=== PATIENT | female | born 1955 | race Caucasian/White ===

== ENCOUNTER 2023-05-25 08:53 | Outpatient (AMB) | payer OTHER, SELFPAY ==
--- NOTE | 2023-05-25 09:36 | MHC.OFFWIV ---
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 Pt has c/o head cold, green/brown mucus, and bilateral ear discomfort. 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 Reporting symptoms of sinus congestion, sore throat and difficulty swallowing. Low-grade fever. No family member is sick. No recent travel. Patient reports symptoms of malaise and fatigue. [facility] Social History Patient Tobacco Use Status: Never used Tobacco Physical Exam Vital Signs: Last Vital Signs Temp 97.8 F 05/25/23 09:41 Pulse 76 05/25/23 09:41 BP 130/78 05/25/23 09:41 Pulse Ox 97 05/25/23 09:41 Oxygen Delivery Method Room Air 05/25/23 09:41 BMI result Body Mass Index 28.0 Const General: cooperative and healthy appearing Nutritional Appearance: well nourished Orientation/consciousness: patient oriented x3 Limitations: no limitations HEENT Head: Yes normal to inspection Eyes General: appearance normal, both eyes and all related structures Neck Neck: Yes normal visual inspection Chest Chest palpation & inspection: normal palpation of entire chest wall Resp Effort & Inspection: normal respiratory effort Neuro General: patient oriented x3 Assessment & Plan Assessment & Plan (1) Maxillary sinusitis: Code(s): J32.0 - Chronic maxillary sinusitis Plan: Antibiotics ordered. Increase fluid intake. Tylenol for aches and pains. If symptoms worsen, follow-up here for a recheck. Coding Level of Care Code Est Pt Level 3 (82189) Diagnoses Maxillary sinusitis J32.0
[2023-05-25 09:41] VITALS: BP 130/78; PULSE 76; TEMP 36.6; O2SAT 97; BMI 28.0
== END 2023-05-25 10:17 | disposition home or self-care (01) ==
PROVIDERS: Visit Provider Internal Medicine
DX: J32.0 Chronic maxillary sinusitis (principal)
CPT/HCPCS: 99213

== ENCOUNTER 2023-05-28 07:05 | Emergency (ER) | payer OTHER, SELFPAY ==
[2023-05-28 07:16] VITALS: BP 165/82; PULSE 90; RESP 17; TEMP 36.4; O2SAT 97; BMI 27.7
--- NOTE | 2023-05-28 07:44 | ED.EAR ---
HPI - Ear Problem General Chief complaint: Ear Problems Stated complaint: R ear leaking blood/dizziness Time Seen by Provider: 05/28/23 07:31 Source: patient Mode of arrival: ambulatory Limitations: no limitations History of Present Illness HPI Narrative: This is 67 years old female presented to the emergency department complaining of right ear pain. She visited the PCP primary care physician on Sunday she was diagnosed with sinus infection and started on azithromycin. She has been unable to tolerate the azithromycin because GI side effect. She is here today with a chief complaint of right ear pain. She states she has a bloody drainage from the right ear. MD Complaint: ear pain and ear discharge Location: right ear Severity: moderate Relieving factors: nothing Exacerbating factors: nothing Discharge from ear: yes - bloody Treatment prior to arrival: none Related Data Home Medications Medication Instructions Recorded Confirmed lisinopril 5 mg tablet 5 mg PO DAILY 05/25/23 Previous Rx's Medication Instructions Recorded azithromycin 250 mg tablet See Rx Instructions PO .COMPLEX #6 05/25/23 tabs amoxicillin 875 mg-potassium 1 tab PO BID #20 tabs 05/28/23 clavulanate 125 mg tablet ciprofloxacin 0.3 %-dexamethasone 4 drp otic (ear) right BID 7 days 05/28/23 0.1 % ear drops,suspension #7.5 mL oxycodone 5 mg tablet 5 mg PO Q6H PRN pain #15 tabs 05/28/23 Allergies Allergy/AdvReac Type Severity Reaction Status Date / Time No Known Allergies Allergy Verified 05/25/23 09:49 Review of Systems ENT: Reports system reviewed and no additional complaints, except as documented Cardiovascular: Cardiovascular: Reports no additional cardiovascular complaints and Denies dyspnea Respiratory: Respiratory: Denies cough and Denies dyspnea [facility] Past Medical History Attestation statement: The following information was validated with the patient. [facility] Narrative: Hypertension Source: unable to obtain Onset Date is defined in the Problem List Problems that require an onset date and time if occurred within 24 hrs of arrival to the ED Aortic Dissection and Rupture; Neurologic impairment; Cardiopulmonary Arrest; Endotracheal Intubation; Insertion or Replacement of Mechanical Circulatory Assist Device Social History Social History Patient Tobacco Use Status: Never used Tobacco Advance Directives: No Advance Directives Information Provided: No Physical Exam Vital Signs: Vital Signs: Last Vital Signs Temp 97.6 F 05/28/23 07:16 Pulse 90 05/28/23 07:16 Resp 17 05/28/23 07:16 BP 165/82 H 05/28/23 07:16 Pulse Ox 97 05/28/23 07:16 O2 Del Method Room Air 05/28/23 07:16 BMI result Body Mass Index 27.7 Const: General: cooperative, well developed, alert and awake Nutritional Appearance: average body habitus Orientation/consciousness: patient oriented x3 Limitations: no limitations HEENT: Head: Yes normal to inspection Ears: hearing grossly normal bilaterally and other (Right TM is red but I do not see a perforation on the drum) Face and sinus: Yes normal facial exam Throat: Yes posterior oropharynx normal Neck: Neck: Yes normal visual inspection and Yes full ROM Chest: Chest palpation & inspection: normal inspection of the chest Resp: Effort & Inspection: normal respiratory effort and able to speak in complete sentences Auscultation: clear to auscultation bilaterally Cardio: Jugular venous distension: no JVD Rate: regular rate Rhythm: regular rhythm GI: Inspection: Yes normal to inspection Palpation (GI): Soft to palpation, not firm, nontender and no guarding Auscultation: normal bowel sounds Skin: General skin exam: no rashes or lesions noted, elasticity normal and turgor normal Lesions: no lesions Rashes: no rashes Trauma: no lacerations or abrasions Neuro: General: patient oriented x3 Cranial nerves: Yes CN's II-XII intact bilaterally Medical Decision Making Medical Decision Making MDM Narrative: Patient presented with right ear pain unable to tolerate azithromycin given by the PCP, will try Augmentin, also I will give eardrops I think she has a combination of the right otitis media and external otitis Differential Diagnosis Differential Diagnoses: The differential diagnosis associated with the presentation includes Otitis media/externa otitis/perforated drum Admission/Observation Consideration of admission/observation: Escalation of care including admission/observation considered Chronic Conditions Patient?s care impacted by: Hypertension Discharge Plan Discharge Clinical Impression: Otitis externa, Otitis media Patient Disposition: Home, Self-Care Instructions: Ear Infection (ED) Additional Instructions: Follow-up with your primary care physician also we gave you the number of the green chain off bearer for follow-up, return to the emergency room if you are worse fever vomiting Prescriptions: New amoxicillin-pot clavulanate 875-125 mg tablet 1 tab PO BID Qty: 20 0RF ciprofloxacin-dexamethasone 0.3-0.1 % drops,suspension 4 drp otic (ear) right BID 7 Days Qty: 7.5 0RF oxycodone 5 mg tablet 5 mg PO Q6H PRN (Reason: pain) Qty: 15 0RF Rx Instructions: partial filing upon pt request; Partial Fill upon patient request. No Action lisinopril 5 mg tablet 5 mg PO DAILY azithromycin 250 mg tablet See Rx Instructions PO .COMPLEX Qty: 6 0RF Rx Instructions: take 500 mg today (day 1), then 250 mg for 4 days (days 2-5) PO Referrals: Stefan Whitmore [Physician] - 3 days Interventions: ED Discharge Assessment Last Done: 05/28/23 08:49 Discharge Date/Time: 05/28/23 08:50
== END 2023-05-28 08:50 | disposition home or self-care (01) ==
PROVIDERS: Emergency Provider Emergency Medicine
DX: H60.91 Unspecified otitis externa, right ear (principal); H66.91 Otitis media, unspecified, right ear
CPT/HCPCS: 99283

== ENCOUNTER 2023-06-13 08:35 | Outpatient (AMB) | payer OTHER, SELFPAY ==
--- NOTE | 2023-06-13 09:24 | AM.OFFWIN_ITS ---
Intake Vital Signs 06/13/23 09:27 Height 5 ft 10 in Weight 189 lb 8 oz BMI 27.2 BP 160/80 H Blood Pressure Location Rt brachial Position Sitting Pulse 94 Pulse Source Pulse Oximeter Temp 98.2 F Temp Source Oral Pulse Oximetry (%) 97 Oxygen Delivery Method Room Air Intake Visit Reasons: EP Cough [phone] Intake Note: Pt is here c/o cough for over one month. Pt states she had the flu last month and has now developed a worsening cough. Patient Tobacco Use Status: Never used Tobacco Allergies No Known Allergies Allergy (Verified 06/13/23 09:26) Medication List - Last Reconciled 06/13/23 by SERAFIN Walden lisinopril 5 mg PO DAILY Do you need a note to return to daycare/school/sports/work: No HPI HPI Comments History of Present Illness Details Here today w/ cough that has been present since dx of the Flu 1 month ago Has been tx w 2 AB since this time cough productive dark, worse at HS Using mucinex w/o relief PFSH Social History Patient Tobacco Use Status: Never used Tobacco Review of Systems Const All systems reviewed & are unremarkable except as noted in HPI and below Physical Exam Vital Signs: Last Vital Signs Temp 98.2 F 06/13/23 09:27 Pulse 94 06/13/23 09:27 BP 160/80 H 06/13/23 09:27 Pulse Ox 97 06/13/23 09:27 Oxygen Delivery Method Room Air 06/13/23 09:27 BMI result Body Mass Index 27.2 Const Other: ill appearing paroxysmal cough, able to speak 1-2 words at a time LS w/ coarse rhonci throughout skin PWD after updraft, cough much improved, able to speak in full sentences, LS ins/exp wheezes w/ scattered rhonci Office Procedures Nebulizer Treatment Nebulizer Treatment 13855-Xxmhqtvnv/MDI RX initial, or Nebulizer Subsequent Treatment Office Meds ipratropium 0.5 mg-albuterol 3 mg (2.5 mg base)/3 mL nebulization soln Performing Provider: SERAFIN Walden Performing Location: [facility] Administered by: SERAFIN Walden on 06/13/23 09:50 Dose Route Admin Location Dispensed Lot Number Expiration Date [employer] [facility] Security Officer 3 mL inhalation 3 mL [id number] 02/19/24 0686-5378-92 [facility] Assessment & Plan Assessment & Plan (1) Cough present for greater than 3 weeks: Code(s): R05.8 - Other specified cough Plan: . Plan CXR today, will be called if results +. if need for AB, she asks to avoid Zpak as this caused vomiting. Take steroids and inhaler as directed. if no improvement or worsening, please return Total time spent caring for the patient today was 70 minutes. This includes time spent before the visit reviewing the chart, time spent during the visit, and time spent after the visit on documentation Orders: Orders XR chest 2V Today R05.8 - Other specified cough AMB Nebulizer Treatment Today R05.8 - Other specified cough Medications: New prednisone 50 mg PO DAILY 5 days 5 tabs 0RF albuterol sulfate 90 mcg/actuation 2 puffs inhalation Q4-6H 30 days PRN 8.5 grams 0RF shortness of breath or wheezing codeine-guaifenesin 10-100 mg/5 mL 5 mL PO .QHS PRN 10 mL 0RF cough 2 days fluticasone propion-salmeterol 250-50 mcg/dose (Advair Diskus) 1 inh inhalation Q12H 30 days 60 ea 0RF Coding Level of Care Code Est Pt Level 5 (36107) Diagnoses Cough present for greater than 3 weeks R05.8 CPT Codes Nebulizer Treatment - Nebulizer Treatment, initial or subsequent: 10162- Nebulizer/MDI RX initial, or Nebulizer Subsequent Treatment ([id number])
[2023-06-13 09:27] VITALS: BP 160/80; PULSE 94; TEMP 36.8; O2SAT 97; BMI 27.2
== END 2023-06-13 10:04 | disposition home or self-care (01) ==
PROVIDERS: Visit Provider Nurse Practitioner Family
DX: R05.8 Other specified cough (principal)
CPT/HCPCS: 94640; 99215; J7620

== ENCOUNTER 2023-06-13 10:08 | Outpatient (REF) | payer OTHER, SELFPAY ==
--- NOTE | ~2023-06-13 | XR_ITS ---
EXAMINATION: XR CHEST CLINICAL INFORMATION: Other unspecified cough difficulty breathing COMPARISON: None available. TECHNIQUE: 2 views of the chest were obtained. FINDINGS: Lungs clear. No pleural effusions. Heart and pulmonary vessels normal. No congestive change. There is spondylitic change in the thoracic spine. XR/XR chest 2V IMPRESSION: No active disease.
== END 2023-06-13 10:09 | disposition home or self-care (01) ==
LOC: HO.HMGCX 10:08
PROVIDERS: Visit Provider Nurse Practitioner Family
DX: R05.8 Other specified cough (principal)
CPT/HCPCS: 71046

== ENCOUNTER 2024-10-16 08:40 | Outpatient (REF) | payer OTHER, SELFPAY | END 2024-10-16 08:41 | disposition home or self-care (01) | LOC: HO.LAB 08:40 | PROVIDERS: PCP Family Medicine | DX: N39.0 Urinary tract infection, site not specified (principal); J06.9 Acute upper respiratory infection, unspecified | CPT/HCPCS: 87086 ==

== ENCOUNTER 2024-10-16 08:40 | Outpatient (AMB) | payer OTHER, SELFPAY ==
--- OUTSIDE RECORDS SUMMARY | 2024-10-16 08:56 | XMS_ITS | Clinical Summary ---
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 Phone Unavailable Primary Care Provider Unavailabl e Social History Tobacco Use Types Packs/Day Years Used Date Smoking Tobacco: Never Assessed Comments Unknown Sex and Gender Information Value Date Recorded Sex Assigned at Female 06/28/2023 10:19 AM EST Legal Sex Female 8:49 AM EST Gender Identity Female 06/28/2023 8:55 AM EST Sexual Orientation Not on file Plan of Treatment Health Maintenance Due Date Last Done Comments CT Colonography 1954 Colonoscopy 1954 Colorectal Cancer Screening 1954 Depression Screening 1954 FIT DNA/Cologuard 1954 FIT 1954 FOBT 1954 SDOH Screening 1954 Sigmoidoscopy 1954 Alcohol/Substance Use Screening 1966 Tobacco Screening 1966 Hepatitis C Screening 1972 DTaP/Tdap/Td Vaccines (1 - Tdap) 1973 Mammogram 1994 Pneumococcal Vaccine: 50+ Ye ars (1 of 1 - PCV) 2004 Zoster Vaccines (1 of 2) 2004 COVID-19 Vaccine ( - 2023-2 5 season) 2024 Influenza Vaccine (#1) 2024 RSV Patients and Pa tients Aged 60 years or older (1 - 1-dose 75+ series) 2029 HIB Vaccines Aged Out No longer eligi ble based on patient's age to complete this topic HPV Vaccines Aged Out No longer eligi ble based on patient's age to complete this topic Hepatitis A Vaccines Aged Out No long er eligible based on patient's age to complete this topic Hepatitis B Vaccines Aged Out No long er eligible based on patient's age to complete this topic IPV Vaccines Aged Out No longer eligi ble based on patient's age to complete this topic Meningococcal B Vaccine Aged Out No l onger eligible based on patient's age to complete this topic Meningococcal Vaccine Aged Out No chely angelo eligible based on patient's age to complete this topic RSV under 20 months Aged Out No longe r eligible based on patient's age to complete this topic Rotavirus Vaccines Aged Out No longer eligible based on patient's age to complete this topic [facility]
--- NOTE | 2024-10-16 09:05 | AM.OFFWIN_ITS ---
Intake Vital Signs 10/16/24 09:09 Height 5 ft 10 in BMI Reason not done Patient refused/unable BP 140/80 H Blood Pressure Location Lt brachial Position Sitting Pulse 85 Pulse Source Pulse Oximeter Temp 97.7 F Temp Source Oral Pulse Oximetry (%) 98 Oxygen Delivery Method Room Air Intake Visit Reasons: EP-?uti Patient Tobacco Use Status: Never used Tobacco Allergies No Known Allergies Allergy (Verified 10/16/24 09:09) Do you need a note to return to daycare/school/sports/work: No HPI HPI Comments History of Present Illness Details History of Present Illness - The patient is a 68-year-old female pr esenting with increased urinary frequency and urgency. - Symptoms began two days ago, with the worst intensity reported the day before this visit. - The patient describes feelings of pres sure and frequent urges to urinate. - There is no history of urinary tract i nfections or kidney stones. - The patient denies fever, low back jeanne n, hematuria, and vulvar itching or redness. - Walking feels unusual due to the urina ry symptoms. - The patient does not have diabetes. Physical Exam General: Cooperative, healthy appearing, comfortable, no acute distress and well developed Orientation: Patient oriented x3 Limitations: No limitations Head: Normal to inspection Ears: Hearing grossly normal bilaterally Nose: Normal External nose present Face and sinus: Normal facial exam Eyes: Appearance normal, both eyes and all related structures Neck: Normal visual inspection and Yes full ROM Respiratory: Normal respiratory effort and able to speak in complete sentences. Skin: No rashes or lesions noted Neuro: Patient oriented x3 Extremities: Normal to inspection [facility] Social History Patient Tobacco Use Status: Never used Tobacco Review of Systems Const All systems reviewed & are unremarkable except as noted in HPI and below Physical Exam Vital Signs: Last Vital Signs Temp 97.7 F 10/16/24 09:09 Pulse 85 10/16/24 09:09 BP 140/80 H 10/16/24 09:09 Pulse Ox 98 10/16/24 09:09 Oxygen Delivery Method Room Air 10/16/24 09:09 Assessment & Plan Assessment & Plan (1) URI, acute: Code(s): J06.9 - Acute upper respiratory infection, unspecified Plan: UA negative for infection but + for blood. A presumptive diagnosis of urinary tract infection is made based on the patient's symptoms and urinalysis results. Empirical antibiotic treatment has been initiated, with a urine culture ordered to verify the diagnosis and antibiotic sensitivity. Adjustments to the antibiotic may be made if the culture indicates resistance. The patient is instructed to complete the antibiotic course unless otherwise notified. If the culture is negative, further evaluation will be conducted to determine other potential causes for the symptoms. The patient has been advised to report any new or worsening symptoms, and the plan has been discussed thoroughly with the patient. Patient was informed and verbally consented to the use of an ambient scribe for clinic note documentation during this visit. Orders: Orders Urine Culture Today N39.0 - Urinary tract infection, site not specified Medications: New cefuroxime axetil 500 mg PO Q12H 10 tabs 0RF Coding Level of Care Code New Pt Level 3 (46041) Diagnoses URI, acute J06.9
[2024-10-16 09:09] VITALS: BP 140/80; PULSE 85; TEMP 36.5; O2SAT 98
== END 2024-10-16 09:41 | disposition home or self-care (01) ==
PROVIDERS: PCP Family Medicine; Visit Provider Physician Assistant
DX: J06.9 Acute upper respiratory infection, unspecified (principal)

== ENCOUNTER 2024-12-15 09:10 | Outpatient (AMB) | payer OTHER, SELFPAY ==
--- OUTSIDE RECORDS SUMMARY | 2024-12-15 09:48 | XMS_ITS | Clinical Summary ---
Author Organization [employer] Address [address] [place] [address] Care Team Providers Care Case Fitter Name Role Phone Unavailable Primary Care Provider [...] 2023-2 5 season) 2024 Influenza Vaccine (#1) 2025 RSV Patients and Pa tients Aged 60 [...] patient's age to complete this topic [facility]
--- OUTSIDE RECORDS SUMMARY | 2024-12-15 09:48 | XMS_ITS | Clinical Summary ---
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 Phone No, Pcp Primary Care Provider Unavailabl e Allergies No known active allergies Active Problems Problem Noted Date Diagnosed Date Bilateral calcaneal spurs 03/17/2022 Social History Tobacco Use Types Packs/Day Years Used Date Smoking Tobacco: Never Assessed Comments Unknown Sex and Gender Information Value Date Recorded Sex Assigned at Not on file Legal Sex Female 8:20 AM [facility] Gender Identity Not on file Sexual Orientation Not on file Plan of Treatment Health Maintenance Due Date Last Done Comments CT Colonography 1954 Cologuard 1954 Colonoscopy 1954 Colorectal Cancer Screening 1954 FOBT/FIT 1954 Hepatitis C Screening 1954 Sigmoidoscopy 1954 PHQ-9 Depression Screen 1966 Annual Preventive Exam 1972 JOCELYNE-7 Anxiety Screen 1972 DTaP,Tdap,and Td Vaccines (1 - Tdap) 1973 Mammogram 1994 Pneumococcal Vaccine: 50+ Years (1 of 1 - PCV) 005 Zoster Vaccines (1 of 2) 2004 Bone Density DEXA 11/08/2019 COVID-19 Vaccine (1 - 2023-25 season) 2024 Influenza Vaccine (#1) 2025 RSV Vaccine (SCDM) (1 - 1-dose 75+ series) 2029 Insurance [employer] Care Teams Heavy Equipment Supervisor Relationship Specialty Start Date End Date No, Pcp PCP - General 03/17/22
--- OUTSIDE RECORDS SUMMARY | 2024-12-15 09:48 | XMS_ITS | Clinical Summary ---
Author Organization [facility] [address] [place] [address] Address [address] [place] [address] Phone Care Team Providers Care Manager Reliability Name Role Phone Damien Alva MD Primary Care Pr ovider Allergies Active Allergy Reactions Criticality Noted Date Comments Azithromycin 08/07/2016 GI upset Medications multivitamin (MULTIPLE VITAMINS ORAL) 1 daily Activ e cholecalciferol (VITAMIN D-3) 25 mcg (1,000 unit) capsule Take by mouth daily. Active lisinopriL (PRINIVIL,ZESTRI L) 5 mg tabletIndication s:Essential (primary) hypertension Take 1 tablet (5 mg total) by mouth 1 (one) time each day. 90 tablet 1 5 Active pravastatin (PRAVACHOL) 10 mg tablet Take 1 tablet (10 mg total) by mouth 1 (one) time each day. 90 tablet 1 5 Active ibuprofen (ADVIL,MOTRIN) 800 mg tablet TAKE 1 TABLET BY MOUTH 2 TIMES A DAY IF NEEDED FOR PAIN. 60 tablet 5 Active ibuprofen (ADVIL,MOTRIN) 800 mg tablet Take 1 tablet (800 mg total) by mouth 2 (two) times a day if needed (pain). 60 tablet 5 025 Discontinued Active Problems Problem Noted Date Diagnosed Date Essential hypertension 08/21/2019 Diverticulitis of colon without hemorrhage 01/18 Overview (05/12/2024): Incidental finding at colonoscopy 01/18/2010. Hyperlipidemia 09/10/2008 Umbilical hernia 06/07/2005 Encounters Date Type Department Care Team Description 11/11/2024 10:41 AM EDT - 11/11/2024 11:59 PM EDT Hospital Encounter XRAY - [address] [phone] Acute pain of left knee Discharge Disposition: Home or Self Care 11/11/2024 10:00 AM EDT Office Visit [facility] - [address] [phone] Mila Petit PA Annual physical exam (Primary Dx); Essential (primary) hypertension; Acute pain of left knee; Screening for osteoporosis 10/01/2024 9:48 AM EDT - 10/01/2024 11:59 PM EDT Hospital Encounter Radiology Department - [address] [phone] Encounter for screening mammogram for breast cancer Discharge Disposition: Home or Self Care from Last 3 Months Immunizations Name Administration Dates Next Due Influenza trivalent, 0.5mL, preservative free (Fluarix; FluLaval; Fluzone) ages 6mo and older (Afluria) 3 years and older 05/06/2012 Influenza trivalent, with pr eservative (Fluzone; Afluria) 6mo and older 05/19/2013 Pneumococcal conjugate 20 va lent (Prevnar 20, PCV 20) 2mo and older 08/28/2023 Td Tetanus diptheria (Tdvax) 7yo and older 02/11,01/19/1994 Tdap Tetanus diptheria acell ular pertussis (Boostrix; Adacel) 7yo and older 02/11/2019,12/24/2006,01/19/1994 Surgical History Surgery Date Site/Laterality Comments CHOLECYSTECTOMY PROCEDURE: HISTORICAL CHOLECYSTECTOMY TONSILLECTOMY PROCEDURE: HISTORICAL TONSILLECTOMY HYSTERECTOMY 09/22 PROCEDURE: HISTORICAL HYSTERECTOMY; COMMENT: ovaries left COLONOSCOPY W/ POLYPECTOMY 01/18/2010 PROCEDURE: LA COLSC FLX W/RMVL OF TUMOR POLYP LESION SNARE TQ; COMMENT: large polyp at 15 cm: pedunculated cancer arising in a polyp. COLONOSCOPY 10/13/2010 PROCEDURE: LA COLONOSCOPY FLX DX W/COLLJ SPEC WHEN PFRMD; COMMENT: no polyps COLONOSCOPY 04/03/2014 PROCEDURE: LA COLONOSCOPY FLX DX W/COLLJ SPEC WHEN PFRMD; COMMENT: no polyps Medical History Medical History Date Comments Umbilical hernia without men tion of obstruction or gangrene 06/07/2005 DX:Umbilical hernia without mention of obstruction or gangrene Hyperlipidemia 09/10/2008 DX:Hyperlipidemi a Diverticulosis of colon (wit hout mention of hemorrhage) 01/18/2010 DX:Diverticulosis of colon ( without mention of hemorrhage) Personal history of colon cancer 01/20/2010 DX:Personal history of colon cancer; COMMENT: Pedunculated adenoma with adenocarcinoma removed at colonoscopy 01/18/2010. No unfavorable prognostic factors. Clear margin by 5 mm. Neg CN 10/13/2010. Next CN indicated 2013. Personal history of malignan t neoplasm of large intestine 2012 DX:Personal history of malig nant neoplasm of large intestine Essential hypertension 08/21/2019 DX:Essent ial hypertension Essential hypertension 08/21/2019 Family History Medical History Relation Name Comments Hyperlipidemia Brother Other: unknown Father unknown cause Breast cancer Maternal Grandmother 70s COPD Mother cabg Colon cancer Neg Hx Relation Name Status Comments Brother Father unknown health Maternal Grandmother 70s Mother MIs Social History Tobacco Use Types Packs/Day Years Used Date Smoking Tobacco: Former Cigarettes Q uit: 05/21/1979 Smokeless Tobacco: Never Alcohol Use Standard Drinks/Week Comments No 0 (1 standard drink = 0.6 oz pur e alcohol) Housing Instability Answer Date Recorde d Are you worried that in the next 2 months you may not have stable housing? No 11/11/2024 Food Access & Nutrition Answer Date Rec orded Do you have access to a vari ety of food including fruits and vegetables? Yes 11/11/2024 Health Literacy Answer Date Recorded How often do you need to hav e someone help you when you read instructions, pamphlets, or other written material from your doctor or pharmacy? Never 11/11/2024 Caregiver: How often do you need to have someone help you when you read instructions, pamphlets, or other written material from your doctor or pharmacy? Not on file 11/11/2024 Financial Risk Answer Date Recorded How hard is it for you to pa y for the very basics like food, housing, medical care, and air conditioning / heating? Not very hard 11/11/2024 Transportation Answer Date Recorded Has the lack of transportati on kept you from meetings, work, or from getting things needed for daily living? No Has the lack of transportati on kept you from medical appointments or from getting medications? No 11/11/2024 Social Isolation Answer Date Recorded How often do you feel lonely or isolated from th ose around you? Never 11/11/2024 Food Risk Answer Date Recorded Within the past 12 months we worried whether our food would run out before we got money to buy more. Never true 11/11/2024 Within the past 12 months th e food we bought just didn't last and we didn't have money to get more. Never true 11/11/2024 Dependent Care Answer Date Recorded Do you need help finding or paying for care for your loved ones. For example, child welfare assistant or elderly care for an older adult? No 11/11/2024 Education Answer Date Recorded Do you think completing more education or training, like finishing a GED, going to college, or learning a trade, would be helpful for you? No 11/11/2024 Employment and Income Answer Date Recor ded During the last four weeks, have you been actively looking for work? No 11/11/2024 Living Situation Answer Date Recorded What is your living situation? 0 11/11/2024 Comments No Sex and Gender Information Value Date Recorded Sex Assigned at Not on file Legal Sex Female 6:34 PM EST Gender Identity Not on file Sexual Orientation Not on file Obstetrics History Para Term AB IAB SAB Ectopic Multiple Livin g Live Births 6 6 6 6 Date Outcome GA Total Labor Labor/2nd/3rd Weight Sex Type Anes PTL Preeti A1 A5 Name Clin Term Term Term Term Term Term Last Filed Vital Signs Vital Sign Reading Time Taken Comments Blood Pressure 133/78 11/11/2024 10:07 AM EDT Pulse 76 11/11/2024 10:07 AM EDT Temperature 36.5 C (97.7 F) 11/11/2024 10:07 AM EDT Respiratory Rate 14 11/11/2024 10:07 AM EDT Oxygen Saturation 97% 11/11/2024 10:07 AM EDT Inhaled Oxygen Concentration - - Weight 85.7 kg (189 lb) 11/11/2024 10:07 AM EDT Height 175.3 cm (5' 9 ) 11/11/2024 10:07 AM EDT Body Mass Index 27.91 11/11/2024 10:07 AM EDT Plan of Treatment Upcoming Encounters Date Type Department Care Team (Late st Contact Info) Description 05/15/2025 10:30 AM EST Office Visit Adult Medicine [address] [phone] Mila Petit PA [address] [place] [address] 11/19/2025 12:00 PM EDT Office Visit Adult [address] [phone] Damien Alva MD [address] [place], [place] [id number] Health Maintenance Due Date Last Done Comments Zoster Vaccines (1 of 2) 2004 COVID-19 Vaccine ( - season) 2024 09/30/2020, 09/02/2020 Influenza Vaccine (#1) 2025 05/19/2013, 2011 Falls Risk Assessment 11/11/2025 11/11/2024 Social Influencers of Health Screening 11/11/2025 11/11/2024 Hypertension/CHF/CAD Annual BMP Blood Test 11/12/2025 11/12/2024, 08/16/2023 Breast Cancer Screening 10/01/2026 10/02/19, 09/20/2023, 09/20/2023, Additional history exists Colorectal Cancer Screening: Colonoscopy 09/26/2028 09/27/2023 DTaP,Tdap,and Td Vaccines (6 - Td or Tdap) 02/11/2029 02/11/2019, 02/11/2019, 12/24/2006, Additional history exists RSV Immunization Adult Patients (1 - 1-dose 75+ series) 2029 Cholesterol Screening (Lipid Panel) 11/12/2029 11/12/2024, 08/16/2023 Osteoporosis Screening (Bone Density Screening) 09/07/2032 09/07/2022 Hepatitis C Screening Completed 05/20/2013 Pneumococcal Vaccine: 50+ Years Completed 08/28/2023 Depression Screening Completed 11/11/2024 HIB Vaccines Aged Out No longer eligi [...] on patient's age to complete this topic MMR Vaccines Aged Out No longer eligi ble based on patient's age to complete this topic Meningococcal ACWY Vaccine Aged Out N o longer eligible based on patient's age to complete this topic Meningococcal B Vaccine Aged Out No l onger eligible based on patient's age to complete this topic RSV Immunization Patients Under 20 months Aged Out No longer eligible based on patient's age to complete this topic Varicella Vaccines Aged Out No longer eligible based on patient's age to complete this topic Procedures Procedure Name Priority Date/Time Associated Diagnosis Comments CBC WITH AUTO DIFFERENTIAL Routine 11/12/2024 7:35 AM EDT Annual physical exam CBC AND DIFFERENTIAL Routine 11/12/2024 7:35 AM EDT Annual physical exam COMPREHENSIVE METABOLIC PANEL Routine 11/12/2024 7:35 AM EDT Annual physical exam Essential (primary) hypertension HEMOGLOBIN A1C Routine 11/12/2024 7:35 AM EDT Annual physical exam LIPID PANEL WITH REFLEX TO DIRECT LDL Routine 11/12/2024 7:35 AM EDT Annual physical exam VITAMIN D 25 HYDROXY Routine 11/12/2024 7:35 AM EDT Annual physical exam XR KNEE 4+ VIEWS LEFT Routine 11/11/2024 10:52 AM EDT Acute pain of left knee MG MAMMO DIGITAL SCREENING W KRZYSZTOF BILAT Routine 10/01/2024 9:58 AM EDT Encounter for screening mammogram for breast cancer COLONOSCOPY Routine 09/27/2023 DXA BONE DENSITY STUDY 1+ SITS AXIAL SKEL Routine 09/07/2022 10:55 AM EDT Encounter for screening for osteoporosis HEPATITIS C SCREENING Routine 05/20/2013 from Last 3 Months or Most Recently Relevant to Health Maintenance Results * (ABNORMAL) Lipid panel with reflex to direct LDL (11/12/2024 7:35 AM EDT) Cholesterol 212(H) 0 - 200 mg/dL LAB [facility] Triglycerides 135 0 - 150 mg/dL LAB CHEMISTRY METHOD 11/12/2024 11:28 AM [facility] HDL 61 >=40 mg/dL LAB CHEMISTRY METHOD 11/12/2024 11:28 AM [facility] LDL Calculated 124(H) 0 - 100 mg/dL LAB CHEMISTRY METHOD 11/12/2024 11:28 AM [facility] VLDL Cholesterol Juan 27 mg/dL LAB CHEMISTRY METHOD 11/12/2024 11:28 AM [facility] Non HDL Chol. (LDL+VLDL) 151(H) <145 mg/dL LAB CHEMISTRY METHOD 11/12/2024 11:28 AM [facility] Chol/HDL Ratio 3.5 0.0 - 4.4 LAB CHEMISTRY METHOD 11/12/2024 11:28 AM [facility] Blood Venous blood specimen / Unknown Venipuncture / Unknown 11/12/2024 7:35 AM EDT 11/12/2024 7:35 AM EDT us Mila MADRIGAL LAB BLOOD ORDERABLES Final Re sult [facility] [address] [place] [address], * CBC auto differential (11/12/2024 7:35 AM EDT) WBC 5.6 4.8 - 10.8 K/mcL LAB HEMETOLOGY METHOD 11/12/2024 10:44 AM EDT [facility] RBC 4.80 3.80 - 4.80 M/mcL LAB HEMETOLOGY METHOD 11/12/2024 10:44 AM EDT [facility] Hemoglobin 14.7 11.5 - 16.0 g/dL LAB HEMETOLOGY METHOD 11/12/2024 10:44 AM EDT [facility] Hematocrit 45.9 35.0 - 47.0 % LAB HEMETOLOGY METHOD 11/12/2024 10:44 AM EDT [facility] MCV 96.6 79.0 - 98.0 FL LAB HEMETOLOGY METHOD 11/12/2024 10:44 AM EDT [facility] MCH 30.9 27.0 - 32.0 pcg LAB HEMETOLOGY METHOD 11/12/2024 10:44 AM EDT [facility] MCHC 32.0 32.0 - 37.0 g/dL LAB HEMETOLOGY METHOD 11/12/2024 10:44 AM EDT [facility] RDW 12.8 11.0 - 15.0 % LAB HEMETOLOGY METHOD 11/12/2024 10:44 AM EDT [facility] Platelets 263 130 - 400 K/mcL LAB HEMETOLOGY METHOD 11/12/2024 10:44 AM EDT [facility] MPV 10.9 7.0 - 11.0 FL LAB HEMETOLOGY METHOD 11/12/2024 10:44 AM [facility] NRBC 0.0 <1.0 % LAB HEMETOLOGY METHOD 11/12/2024 10:44 AM [facility] NRBC Absolute 0.00 <0.10 K/mcL LAB HEMETOLOGY METHOD 11/12/2024 10:44 AM [facility] Neutrophils Relative 50.4 % LAB HEMETOLOGY METHOD 11/12/2024 10:44 AM [facility] Lymphocytes Relative 40.8 % LAB HEMETOLOGY METHOD 11/12/2024 10:44 AM [facility] Monocytes Relative 6.8 % LAB HEMETOLOGY METHOD 11/12/2024 10:44 AM [facility] Eosinophils Relative 1.1 % LAB HEMETOLOGY METHOD 11/12/2024 10:44 AM [facility] Basophils Relative 0.7 % LAB HEMETOLOGY METHOD 11/12/2024 10:44 AM [facility] Immature Granulocytes Relative 0.2 % LAB HEMETOLOGY METHOD 11/12/2024 10:44 AM [facility] Neutrophils Absolute 2.82 1.50 - 7.00 K/mcL LAB HEMETOLOGY METHOD 11/12/2024 10:44 AM [facility] Lymphocytes Absolute 2.28 1.00 - 5.00 K/mcL LAB HEMETOLOGY METHOD 11/12/2024 10:44 AM [facility] Monocytes Absolute 0.38 0.20 - 1.00 K/mcL LAB HEMETOLOGY METHOD 11/12/2024 10:44 AM [facility] Eosinophils Absolute 0.06 0.00 - 0.50 K/mcL LAB HEMETOLOGY METHOD 11/12/2024 10:44 AM [facility] Basophils Absolute 0.04 0.00 - 0.20 K/mcL LAB HEMETOLOGY METHOD 11/12/2024 10:44 AM EDT [facility] Immature Granulocytes Absolute 0.01 0.00 - 0.03 K/mcL LAB HEMETOLOGY METHOD 11/12/2024 10:44 AM EDT [facility] Blood Venous blood specimen / Unknown Venipuncture / Unknown 11/12/2024 7:35 AM EDT 11/12/2024 7:35 AM EDT Mila MADRIGAL LAB BLOOD ORDERABLES Final Re sult Performing Organization Address City/[facility]/ZIP Co de Phone Number [facility] [address] [place] [address], [place] [phone] * Vitamin D 25 hydroxy (11/12/2024 7:35 AM EDT) Vit D, 25-Hydroxy 56.8 30.0 - 80.0 ng/mL LAB CHEMISTRY METHOD 11/12/2024 12:01 PM EDT [facility] Blood Venous blood specimen / Unknown Venipuncture / Unknown 11/12/2024 7:35 AM EDT 11/12/2024 7:35 AM EDT Mila MADRIGAL LAB BLOOD ORDERABLES Final Re sult Performing Organization Address City/[facility]/ZIP Co de Phone Number [facility] [address] [place] [address], [place] [phone] * Hemoglobin A1c (11/12/2024 7:35 AM EDT) Hemoglobin A1C 5.5 <6.5 % LAB CHEMISTRY METHOD 11/12/2024 12:25 PM EDT [facility] Mean Bld Glu Estim. 111 mg/dL LAB CHEMISTRY METHOD 11/12/2024 12:25 PM EDT [facility] Blood Venous blood specimen / Unknown Venipuncture / Unknown 11/12/2024 7:35 AM EDT 11/12/2024 7:35 AM EDT us Mila MADRIGAL LAB BLOOD ORDERABLES Final Re sult [facility] [address] [place] [address], [place] [phone] * Comprehensive metabolic panel (11/12/2024 7:35 AM EDT) Sodium 140 133 - 145 mmol/L LAB CHEMISTRY METHOD 11/12/2024 11:28 AM [facility] Potassium 4.1 3.5 - 5.5 mmol/L LAB CHEMISTRY METHOD 11/12/2024 11:28 AM [facility] Chloride 106 96 - 110 mmol/L LAB CHEMISTRY METHOD 11/12/2024 11:28 AM [facility] CO2 27 21 - 32 mmol/L LAB CHEMISTRY METHOD 11/12/2024 11:28 AM [facility] Anion Gap 7 3 - 11 LAB CHEMISTRY METHOD 11/12/2024 11:28 AM [facility] Glucose 100 70 - 100 mg/dL LAB CHEMISTRY METHOD 11/12/2024 11:28 AM [facility] BUN 15 5 - 25 mg/dL LAB CHEMISTRY METHOD 11/12/2024 11:28 AM [facility] Creatinine 0.86 0.50 - 1.10 mg/dL LAB CHEMISTRY METHOD 11/12/2024 11:28 AM [facility] eGFR 73 >=60 mL/min/1. 73m2 LAB CHEMISTRY METHOD 11/12/2024 11:28 AM [facility] Comment:Calculation based on the Chronic Kidney Disease Epidemiology Collaboration (CKD-EPI) equation refit without adjustment for race. BUN/Creatinine Ratio 17.4 LAB CHEMISTRY METHOD 11/12/2024 11:28 AM [facility] Calcium 9.1 8.5 - 10.5 mg/dL LAB CHEMISTRY METHOD 11/12/[facility]24 11:[facility] AST (SGOT) 15 10 - 42 unit/L LAB CHEMISTRY METHOD 11/12/2024 11:28 AM T [facility] ALT (SGPT) 21 10 - 60 unit/L LAB CHEMISTRY METHOD 11/12/2024 11:28 AM EDT [facility] Alkaline Phosphatase 92 42 - 121 unit/L LAB CHEMISTRY METHOD 11/12/2024 11:28 AM [facility] Total Protein 6.7 6.0 - 8.0 g/dL LAB CHEMISTRY METHOD 11/12/2024 11:28 AM [facility] Albumin 3.8 3.2 - 5.0 g/dL LAB CHEMISTRY METHOD 11/12/2024 11:28 AM [facility] Total Bilirubin 0.7 0.0 - 1.4 mg/dL LAB CHEMISTRY METHOD 11/12/2024 11:28 AM T [facility] Blood Venous blood specimen / Unknown Venipuncture / Unknown 11/12/2024 7:35 AM EDT 11/12/2024 7:35 AM EDT Mila MADRIGAL LAB BLOOD ORDERABLES Final Re sult [facility] [address] [place] [address], * XR Knee 4+ Views Left (11/11/2024 10:52 AM EDT) Anatomical Region Laterality Modality Lower Extremities, Knee Left Radiogra phic Imaging 11/11/2024 12:4 3 PM EDT Impressions 11/11/2024 12:44 PM EDT No significant degenerative changes. No acute fracture. -------- FINAL REPORT -------- Dictated By: Lyn May Dictated Date: 11/11/2024 12:43 ET Assigned Physician: Lyn May Reviewed and Electronically Signed By: Lyn May Signed Date: 11/11/2024 12:44 ET Workstation ID: [id number] Transcribed By: Self Edit Transcribed Date: 11/11/2024 12:43 ET Narrative 11/11/2024 12:44 PM EDT XR KNEE 4+ VIEWS LEFT Reason: L knee pain Comparison: None FINDINGS: Normal alignment. No fracture. Very tiny negligible marginal osteophytes. Joint spaces are preserved. Small suprapatellar joint effusion. Procedure Note Lyn May MD - 11/11/2024 XR KNEE 4+ VIEWS LEFT Reason: L knee pain Comparison: None FINDINGS: Normal alignment. No fracture. Very tiny negligible marginal osteophytes.Joint spaces are preserved. Small suprapatellar joint effusion. IMPRESSION: No significant degenerative changes. No acute fracture. -------- FINAL REPORT -------- Dictated By: Lyn May Dictated Date: 11/11/2024 12:43 ET Assigned Physician: Lyn May Reviewed and Electronically Signed By: Lyn May Signed Date: 11/11/2024 12:44 ET Workstation ID: [id number] Transcribed By: Self Edit Transcribed Date: 11/11/2024 12:43 ET us Mila MADRIGAL IMG XR PROCEDURES Final Resul t * MG Mammo Digital Screening w Krzysztof bilat (10/01/2024 9:58 AM EDT) Anatomical Region Laterality Modality Breast Bilateral Mammography 10/01/2024 5:19 PM EDT Impressions 10/01/2024 5:19 PM EDT No mammographic evidence of malignancy. BREAST DENSITY: B - There are scattered areas of fibroglandular density. BI-RADS CATEGORY: 1 - NEGATIVE RECOMMENDATION: Screening bilateral mammogram is recommended in 1 year. MAMMO LOCATION: [facility], [address] [place] [address], [id number], . -------- FINAL REPORT -------- Dictated By: Vianey Christianson Dictated Date: 10/01/2024 17:19 ET Assigned Physician: Vianey Christianson Reviewed and Electronically Signed By: Vianey Christianson Signed Date: 10/01/2024 17:19 ET Workstation ID: [id number] Transcribed By: Self Edit Transcribed Date: 10/01/2024 17:19 ET Narrative 10/01/2024 5:19 PM EDT EXAM: Screening Mammogram CLINICAL: 68 years old, Female, routine annual exam. COMPARISON: 09/20/2023 and 09/07/2022 TECHNIQUE: Bilateral MLO and CC views were obtained digitally with 3-D mammogram (digital breast tomosynthesis). Computer-aided detection was utilized in evaluation of this exam (CAD). FINDINGS: No new suspicious mass, architectural distortion, or suspicious calcifications. Procedure Note Vainey Christianson MD - 10/01/2024 EXAM: Screening Mammogram CLINICAL: 68 years old, Female, routine annual exam. COMPARISON: 09/20/2023 and 09/07/2022 TECHNIQUE: Bilateral MLO and CC views were obtained digitally with 3-Dmammogram (digital breast tomosynthesis). Computer-aided detection wasutilized in evaluation of this exam (CAD). FINDINGS: No new suspicious mass, architectural distortion, or suspiciouscalcifications. IMPRESSION: No mammographic evidence of malignancy. BREAST DENSITY: B - There are scattered areas of fibroglandular density. BI-RADS CATEGORY: 1 - NEGATIVE RECOMMENDATION: Screening bilateral mammogram is recommended in 1 year. MAMMO LOCATION: [facility], [address] [place] [address], [id number], . -------- FINAL REPORT -------- Dictated By: Vianey Christianson Dictated Date: 10/01/2024 17:19 ET Assigned Physician: Vianey Christianson Reviewed and Electronically Signed By: Vianey Christianson Signed Date: 10/01/2024 17:19 ET Workstation ID: [id number] Transcribed By: Self Edit Transcribed Date: 10/01/2024 17:19 ET Damien Alva MD [facility] PROCEDURE S Final Result * Hm Colonoscopy (09/27/2023) HM Colonoscopy no interpretation abstracted Anatomical Region Laterality Modality Other Historical Provider HEALTH MAINTENANCE Final Result * DXA BONE DENSITY STUDY 1+ SITS AXIAL SKEL (09/07/2022 10:55 AM EDT) Anatomical Region Laterality Modality Bone Densitometr y 01/31/2022 8:43 AM EDT Narrative 09/07/2022 1:27 PM EDT BONE DENSITY Lumbar Spine T-score is +1.3 (SD relative to 20-29 y/o adult) Z-score is +3.3 (SD relative to age matched peers) This is normal by criteria defined by the WHO. Left Hip T-score is +0.6 Z-score is +2.2 This is normal by criteria defined by the WHO. Impression: Based on the World Health Organization criteria, Evi Liang should be classified as having normal bone density. [facility] Department of Internal Medicine recommends using National Osteoporosis Foundation (NOF) guidelines in treatment decisions related to osteoporosis. NOF guidelines suggest considering treatment for postmenopausal women and men aged 50 or older presenting with the following: History of hip or vertebral fracture. T-score less than or equal to -2.5 (DXA) at the femoral neck, total hip, or spine, after appropriate evaluation to exclude secondary causes. Low bone mass (T-score between -1.0 and -2.5 at the femoral neck or spine) AND a 10-year probability of a hip fracture greater than or equal to 3% OR a 10-year probability of a major osteoporosis-related fracture greater than or equal to 20% based on the [place]-adapted WHO algorithm Please note that all treatment decisions require clinical judgment and consideration of individual patient factors, including patient preferences, co-morbidities, previous drug use, risk factors not captured in the FRAX model (e.g., frailty, falls, vitamin D deficiency, increased bone turnover, interval significant decline in bone density) and possible under- or over-estimation of fracture risk by FRAX. Procedure Note George Blackburn MD - 06/26/2023 BONE DENSITY Lumbar Spine T-score is +1.3 (SD relative to 20-29 y/o adult) Z-score is +3.3 (SD relative to age matched peers) This is normal by criteria defined by the WHO. Left Hip T-score is +0.6 Z-score is +2.2 This is normal by criteria defined by the WHO. Impression: Based on the World Health Organization criteria, Evi Liang should beclassified as having normal bone density. [facility] Department of Internal Medicine recommendsusing National Osteoporosis Foundation (NOF) guidelines in treatmentdecisions related to osteoporosis. NOF guidelines suggest consideringtreatment for postmenopausal women and men aged 50 or older presentingwith the following: History of hip or vertebral fracture. T-score less than or equal to -2.5 (DXA) at the femoral neck, total hip,or spine, after appropriate evaluation to exclude secondary causes. Low bone mass (T-score between -1.0 and -2.5 at the femoral neck or spine)AND a 10-year probability of a hip fracture greater than or equal to 3% ORa 10-year probability of a major osteoporosis-related fracture greaterthan or equal to 20% based on the [place]-adapted WHO algorithm Please note that all treatment decisions require clinical judgment andconsideration of individual patient factors, including patientpreferences, co-morbidities, previous drug use, risk factors not capturedin the FRAX model (e.g., frailty, falls, vitamin D deficiency, increasedbone turnover, interval significant decline in bone density) and possibleunder- or over-estimation of fracture risk by FRAX. Alan Piper MD IMG DXA PROCEDURES Final Re sult * Hepatitis C Screening (05/20/2013) [facility] Hepatitis C Screening abstracted Historical Provider HEALTH MAINTENANCE Final Result from Last 3 Months or Most Recently Relevant to Health Maintenance Insurance [employer] Care Teams Manager Reliability Relationship Specialty Start Date End Date Damien Alva MD [address] [place] [id number] PCP - General 07/30/23
--- OUTSIDE RECORDS SUMMARY | 2024-12-15 09:48 | XMS_ITS | Data Portability ---
Author Organization [facility] Tavera s, [address] Address [address] [place] [address] Care Team Providers Care Goodwill Representative Name Role Phone [facility] Prim stephanie Care Provider Assessment No assessment recorded. Plan of Treatment Reminders Order Date Submit Date Provider Last Modified By Organization Details Last Modified Time Details Appointments None recorded. Lab None recorded. Referral None recorded. Procedures None recorded. Surgeries None recorded. Imaging None recorded. Medication Orders meloxicam 7.5 mg tablet 2022 023 [facility][id number], [address] [place] [address], [id number], 19:05:48 lisinopril 5 mg tablet 2022 023 [facility][id number], [address] [place], [address], 19:05:48 Patient TargetsNo targets recorded. Patient Instructions Encounter Date Encounter Id Patient Instructions Last Modified By Organization Details Last Modified Time 08/15/2022 [id number] wrist tendinitis : exercises [email or web address] Not available 08/15/2022 19:05:46 tenosynovitis of the wrist: care instructions [email or web address] Not available 08/15/2022 19:05:45 Based on your presentation and exam, you are diagnosed with an Wrist Tendonitis My suggestions for this condition include: 1. Ice 2. Elevate 3. Rest 4. Make sure you stretch your wrist regularly for the next 1-2 weeks 5. After 3 days of icing - I would switch to heat - this will help reabsorb any bruising or swelling. 7. OK to wear wrist splint. If you are still having pain 2-3 weeks. I would suggest that you follow up with our office again or schedule and appointment with an orthopedist. I would be seen more urgently if you develop any of the following symptoms. 1. Numbness 2. Cold Extremities 3. Worsening Pain 4. Skin Redness 5. Arm Swelling Thank you for using [facility], please contact our office if you have any questions or concerns. [email or web address] Not available 08/15/2022 19:05:37 Reason for Referral None Reported. Problems No Known Problems Medical Equipment None Reported. Medications Name Sig Start Date Stop Date Status Note LastModified by Organization Details LastModified Time prednisone 20 mg tablet TAKE 2 TABLETS BY MOUTH EVERY DAY FOR 5 DAYS 08/15 completed Not Available Not Available Not Available meloxicam 7.5 mg tablet TAKE 1 TABLET BY MOUTH EVERY DAY active Not Available Not Available No t Available bisacodyl 5 mg tablet,malcolm yed release TAKE 2 TABLETS BY MOUTH RIGHT BEFORE YOUR FIRST DOSE OF LIQUID PREP. 08/15 completed Not Available Not Available Not Available lisinopril 5 mg tablet Take 1 tablet every day by oral route. 2022 active Not Available Not Available Not Avai lable lisinopril 2.5 mg tablet TAKE 1 TABLET BY MOUTH EVERY DAY 08/15 completed Not Available Not Available Not Available Vitamin C active Not Available Not Blanca ilable Not Available Vitamin D active Not Available Not Blanca ilable Not Available multivitami n active Not Available Not Available Not Available GaviLyte-G 236 gram-22.74 gram-6.74 gram-5.86 gram oral solution PLEASE SEE ATTACHED FOR DETAILED DIRECTION S 08/15 completed Not Available Not Available Not Available Vitals Date Recorded Systolic And Diastolic Provider Name and Address Organization Details Last Updated DateTime 08/15/2022 160/90 mm[Hg] KAITLIN JAEGER [address] [place], [address], [facility] - [facility] 08/15/2022 19:06:40 Date Recorded Body height Body mass index (BMI) Body weight Pain severity - 0-10 verbal numeric rating [Score] - Reported Heart rate Oxygen saturation Oxygen saturation in Arterial blood by Pulse oximetry Respiratory rate Body temperature Systolic And Diastolic Systolic And Diastolic Provider Name and Address Organization Details Last Updated DateTime 3 177.8 cm 27.4 kg/m2 99571.1 4 g 10 77 /min 97 % 97 % 18 /min 97.9 [degF] 179/92 mm[Hg] 210/108 mm[Hg] Cecilia Elizabeth [facility] 3 18:45:33 Social History Question Answer Notes LastModified by [employer] Details LastModified Time Tobacco Smoking Status Former Smoker Cecilia peñaloza PA Clara [facility] 08/15/2022 18:39:48 When Did You Quit Smoking? 16+yearssinc elastcigaret te Information not available 08/15/2022 Have You Recently Traveled Abroad? No Information not available 08/15/2022 Sex: Unknown Functional Status Question Answer Note LastModified by [employer] Details LastModified Time Do you use any illicit or recreational drugs? No Information not available 08/15/2022 Do you or have you ever used any other forms of tobacco or nicotine? No Information not available 08/15/2022 What is your level of alcohol consumption? None Information not available 08/15/2022 Mental Status None recorded. Family History Relationship Description Onset Age of this Age Resolved Age Notes LastModified by Organization Details LastModified Time Father No current problems or disability [email or web address] Not available 08/15 18:39:25 Mother No current problems or disability [email or web address] Not available 08/15 18:39:25 Medical History No medical history recorded. Gynecological HistoryNo gynecological history recorded. Obstetrics History GPAL:G 0 P 0 0 0 0 Immunizations Vaccine Type Date Status Note Provider Nam e and Address Organization Details Recorded Time COVID-19, mRNA, LNP-S, PF, 100 mcg/0.5mL dose or 50 mcg/0.25mL dose 1 completed Cecilia peñaloza PA - [facility] 08/15/2022 18:36:45 COVID-19, mRNA, LNP-S, PF, 100 mcg/0.5mL dose or 50 mcg/0.25mL dose 1 completed Cecilia Monfette null, PA - [facility] 08/15/2022 18:36:45 Tdap 7 completed Cecilia Monfette null, PA - [facility] 08/15/2022 18:36:45 Influenza, split virus, trivalent, preservative 3 completed Cecilia Monfette null, PA - [facility] 08/15/2022 18:36:45 influenza, split (incl. purified surface antigen) 2 completed Cecilia Monfette null, PA - [facility] 08/15/2022 18:36:45 Td (adult), 2 Lf tetanus toxoid, preservative free, adsorbed 4 completed Cecilia Monfette null, PA - [facility] 08/15/2022 18:36:45 Td (adult), 2 Lf tetanus toxoid, preservative free, adsorbed 9 completed Cecilia Monfette null, PA - [facility] 08/15/2022 18:36:45 Past Encounters Encounter ID Performer Location Encounter Start Date Encounter Closed Date Diagnosis/Indication Diagnosis SNOMED-CT Code Diagnosis ICD10 Code Diagnosis Note [id number] [address] [place] [address] 08/04/2016 07:58:27 08/04/2016 08:59:02 [id number] [address] [place] [address] 10/19/2018 15:12:15 10/19/2018 16:17:31 [id number] [address] [place] [address] 01/25/2017 09:14:39 01/25/2017 09:31:47 [id number] [address] [place] [address] 04/30/2018 08:44:41 04/30/2018 10:13:39 [id number] [address] [place] [address] 01/17/2018 08:42:39 01/17/2018 09:25:56 [id number] [address] [place] [address] 02/14/2017 08:20:11 02/14/2017 10:06:42 [id number] [address] [place] [address] 03/31/2017 09:12:55 03/31/2017 11:03:19 [id number] [address] [place] [address] 01/25/2018 08:54:09 01/25/2018 10:16:34 [id number] [address] [place] [address] 01/11/2019 13:58:05 01/11/2019 14:34:11 [id number] [address] [place] [address] 12/20/2021 11:18:59 12/20/2021 14:11:28 [id number] [facility] [address] [place] [address] 08/15/2022 17:34:57 08/15/2022 19:09:36 Tendinitis of right wrist region [id number] M67.833 Essential hypertension 12318444 I10 Continue to Monitor blood pressure if remains high after you are feeling better you need to follow up with your PCP. Will refill your blood pressure medication since you are out and you can't get in to see you new doctor Health Concerns Section Related Observation LastModified by Organization Detai ls LastModified Time None Recorded Concern Status LastModified by Organization Details LastModified Time None Recorded Advance Directives Directive None Recorded Payers Insurance Date Sequence Insurance Name Policy Number Policy Estrada Covered Member ID Estrada Member ID Guarantor Name 10/10/2022 1 JARROD [id number] Evi Mazariegos [id number] Evi Mazariegos OBJalen Episode No OBEpisode recorded.
[2024-12-15 09:58] VITALS: BP 144/70; PULSE 79; TEMP 36.6; O2SAT 97; BMI 27.4
--- NOTE | 2024-12-15 09:58 | MHC.OFFWIV ---
Intake Vital Signs 12/15/24 09:58 Height 5 ft 10 in Weight 191 lb BMI 27.4 BP 144/70 H Blood Pressure Location Lt brachial Position Sitting Pulse 79 Pulse Source Pulse Oximeter Temp 97.9 F Temp Source Oral Pulse Oximetry (%) 97 Oxygen Delivery Method Room Air Intake Visit Reasons: EP-b/l eyes pain Intake Note: presents with bilateral eye itch and gritty feeling for 4 days Patient Tobacco Use Status: Never used Tobacco Allergies No Known Allergies Allergy (Verified 12/15/24 09:59) Do you need a note to return to daycare/school/sports/work: No HPI HPI Comments History of Present Illness Details History of Present Illness - The patient is a 69-year-old female presenting with symptoms of eye discomfort and itchiness. - The patient reports initial pain on the skin near the left eye, progressing to itchiness and discomfort in both eyes. - Symptoms include a sticky sensation when blinking and occasional clear fluid discharge. - No changes in vision, eye pain or fever reported. - The patient has a history of allergies and has been engaging in outdoor activities daily such as hiking. Physical Exam General: Cooperative, healthy appearing, comfortable, no acute distress and well developed Orientation: Patient oriented x3 Limitations: No limitations Head: Normal to inspection Ears: Hearing grossly normal bilaterally Nose: Normal External nose present Face and sinus: Normal facial exam Eyes: as below Neck: Normal visual inspection and Yes full ROM Respiratory: Normal respiratory effort and able to speak in complete sentences. Skin: No rashes or lesions noted Neuro: Patient oriented x3 Extremities: Normal to inspection [facility] Social History Patient Tobacco Use Status: Never used Tobacco Review of Systems Const All systems reviewed & are unremarkable except as noted in HPI and below Physical Exam Vital Signs: Last Vital Signs Temp 97.9 F 12/15/24 09:58 Pulse 79 12/15/24 09:58 BP 144/70 H 12/15/24 09:58 Pulse Ox 97 12/15/24 09:58 Oxygen Delivery Method Room Air 12/15/24 09:58 BMI result Body Mass Index 27.4 Eyes General: appearance normal, both eyes and all related structures Alignment and Position: alignment normal and position normal Periorbital: periorbital findings normal Eyelids: Yes eyelids normal Conjunctivae: conjunctivae normal Pupils: Equal, round and reactive pupils present EOM: EOMs intact bilaterally Neuro Cranial nerves: Yes Equal, round and reactive pupils present Assessment & Plan Assessment & Plan (1) Allergic conjunctivitis of both eyes: Code(s): H10.13 - Acute atopic conjunctivitis, bilateral Plan: Plan - Prescribe allergy eye drops, specifically Pataday, to be used once daily in each eye for 30 days or the hiking season. - Consider generic alternatives if the prescribed medication is not covered by insurance. - Advise the patient to consult with a pharmacist for [id number] options if necessary. - if you develop any eye pain, you should see your provider network manager LISANDRO or go to the emergency department. Patient was informed and verbally consented to the use of an ambient scribe for clinic note documentation during this visit. Medications: New olopatadine 0.7% 1 drp ophthalmic (eye) Q24H PRN 5 mL 0RF itching 30 days Coding Level of Care Code New Pt Level 3 (30858) Diagnoses Allergic conjunctivitis of both eyes H10.13
== END 2024-12-15 10:42 | disposition home or self-care (01) ==
PROVIDERS: PCP Family Medicine; Visit Provider Physician Assistant
DX: H10.13 Acute atopic conjunctivitis, bilateral (principal)

== ENCOUNTER 2025-04-02 08:32 | Outpatient (AMB) | payer OTHER, SELFPAY ==
[2025-04-02 08:35] VITALS: BP 148/62; PULSE 65; O2SAT 96; BMI 26.8
--- NOTE | 2025-04-02 08:35 | AM.OFFWIN_ITS ---
Intake Vital Signs 04/02/25 08:35 Height 5 ft 10 in Weight 187 lb BMI 26.8 BP 148/62 H Blood Pressure Location Lt brachial Position Sitting Pulse 65 Pulse Source Pulse Oximeter Pulse Oximetry (%) 96 Oxygen Delivery Method Room Air Intake Visit Reasons: ep pain in rt buttocks radiates down rt leg Intake Note: Patient presents c/o right buttock pain that radiates down right leg into right foot x2 weeks. Patient Tobacco Use Status: Never used Tobacco Allergies No Known Allergies Allergy (Verified 04/02/25 08:38) Do you need a note to return to daycare/school/sports/work: No HPI HPI Comments 2 History of Present Illness Details History of Present Illness - The patient is a 69-year-old female pr esenting with back pain. - She states that the pain is a sharp pa in in the low back and buttock with radiation of the pain. - The pain began two weeks ago, worsenin g over time, and is located in the right buttock, radiating to the right foot. - Pain is worse with movement, especiall y bending and lifting. - The patient links the pain onset to stefanie harting her granddaughter. - She has been using ibuprofen 800 mg, c oncerned about potential gastrointestinal effects, and applying heat for relief. - She has no abd pain, hematuria, dysuri a, CP, SOB, saddle anesthesia, incontinence, numbness, or tingling. Physical Exam General: Cooperative, healthy appearing, comfortable, no acute distress and well developed Orientation: Patient oriented x3 Limitations: No limitations Respiratory: Normal respiratory effort and able to speak in complete sentences. Clear to auscultation bilaterally Cardiovascular: Regular rate and rhythm. Normal S1 and S2 GI: Normal to inspection. Soft to palpation and nontender Skin: No rashes or lesions noted Neuro: Patient oriented x3. Sensation is intact. Extremities: Decrease ROM of the spine secondary to pain. No midline spinous tenderness noted. No step offs noted. TTP of the lumbar paravertebral muscles bilaterally. TTP of the right SI joint. Negative SLR noted. Ambulates with slow steady gait. Strength is 5/5 on the LE bilaterally. DTR are 1+. Patient was informed and verbally consented to the use of an ambient scribe for clinic note documentation during this visit. [facility] Social History Patient Tobacco Use Status: Never used Tobacco Review of Systems Const All systems reviewed & are unremarkable except as noted in HPI and below Physical Exam Vital Signs: Last Vital Signs Pulse 65 04/02/25 08:35 BP 148/62 H 04/02/25 08:35 Pulse Ox 96 04/02/25 08:35 Oxygen Delivery Method Room Air 04/02/25 08:35 BMI result Body Mass Index 26.8 Assessment & Plan Assessment & Plan (1) Sciatica: Code(s): M54.30 - Sciatica, unspecified side Qualifiers: Laterality: right Qualified Code(s): M54.31 - Sciatica, right side Plan Most likely sciatica vs strain plan - Heat to the area - Activities as tolerated - Initiate a five-day course of prednisone to address inflammation and muscle spasms. - Prescribe a muscle relaxant to relieve muscle tension. - Advise discontinuation of ibuprofen due to gastrointestinal risks and propose an alternative pain management approach. - Recommend physical therapy referral for post-pain strengthening and stretching exercises. Medications: New prednisone 40 mg (2 x 20 mg) PO DAILY 10 tabs 0RF 5 days naproxen 500 mg PO Q12H PRN 20 tabs 0RF pain 7 days cyclobenzaprine 5 mg PO Q8H PRN 20 tabs 0RF Muscle Spasm Coding Level of Care Code Est Pt Level 3 (38878) Diagnoses Sciatica of right side M54.31 Laterality: right
--- OUTSIDE RECORDS SUMMARY | 2025-04-02 08:52 | XMS_ITS | Clinical Summary ---
Author Organization [facility] [address] [place] [address] Address [address] [place] [address] Phone Care Team Providers Care Pediatric Allergist Name Role Phone Damien Alva MD Primary Care Pr ovider Allergies Active Allergy Reactions Criticality Noted Date Comments Azithromycin 08/07/2016 GI upset Medications multivitamin (MULTIPLE VITAMINS ORAL) 1 daily Activ e cholecalciferol (VITAMIN D-3) 25 mcg (1,000 unit) capsule Take by mouth daily. Active lisinopriL (PRINIVIL,ZESTRIL ) 5 mg tabletIndications :Essential (primary) hypertension Take 1 tablet (5 mg total) by mouth 1 (one) time each day. 90 tablet 1 11/24/2024 Active pravastatin (PRAVACHOL) 10 mg tablet Take 1 tablet (10 mg total) by mouth 1 (one) time each day. 90 tablet 1 11/19/2024 Active ibuprofen (ADVIL,MOTRIN) 800 mg tablet TAKE 1 TABLET (800 MG) BY MOUTH 2 (TWO) TIMES A DAY IF NEEDED FOR MILD PAIN. 60 tablet 02/09/2025 Active Active Problems Problem Noted Date Diagnosed Date Essential hypertension 08/21/2019 Diverticulitis of colon without hemorrhage 01/18 Overview (05/12/2024): Incidental finding at colonoscopy 01/18/2010. 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 COLONOSCOPY 10/13/2010 PROCEDURE: MS COLONOSCOPY FLX DX W/COLLJ SPEC WHEN PFRMD; COMMENT: no polyps COLONOSCOPY 04/03/2014 PROCEDURE: MS COLONOSCOPY FLX DX W/COLLJ SPEC WHEN PFRMD; [...] Years Used Date Smoking Tobacco: Former Cigarettes 0.3 Q uit: 05/21/1979 Smokeless Tobacco: Never Alcohol [...] for your loved ones. For example, child protection specialist or elderly care for an older adult? [...] Date Recorded What is your living situation? Unrecognized valu e 11/11/2024 Comments No Sex and Gender Information [...] 05/15/2025 10:30 AM EST Office Visit Adult [address] [phone] Mila Petit PA [address] [place] [address] 11/19/2025 12:00 PM EDT Office Visit [address] [phone] Damien Alva MD [address] [place] [address] Health Maintenance Due Date Last Done Comments Zoster Vaccines (1 of 2) 2004 COVID-19 Vaccine (3 - season) 2025 09/30/2020, 09/02/2020 Influenza Vaccine (#1) 2025 05/19/2013, [...] Procedure Name Priority Date/Time Associated Diagnosis Comments COMPREHENSIVE METABOLIC PANEL Routine 11/12/2024 7:35 AM EDT Annual physical exam Essential (primary) hypertension LIPID PANEL WITH REFLEX TO DIRECT LDL Routine 11/12/2024 7:35 AM EDT Annual physical exam MG MAMMO DIGITAL SCREENING W KRZYSZTOF BILAT Routine 10/01/2024 9:58 AM EDT Encounter for screening mammogram for breast cancer HM COLONOSCOPY Routine 09/27/2023 DXA BONE DENSITY STUDY 1+ SITS AXIAL SKEL Routine 09/07/2022 10:55 AM EDT Encounter for screening for osteoporosis HEPATITIS C SCREENING Routine 05/20/2013 from Last 3 Months or Most Recently Relevant to Health Maintenance Results * (ABNORMAL) Lipid panel with reflex to direct LDL (11/12/2024 7:35 AM EDT) Cholesterol 212(H) 0 - 200 mg/dL LAB CHEMISTRY METHOD 11/12/2024 11:28 AM [facility] Triglycerides 135 0 - 150 mg/dL LAB CHEMISTRY METHOD 11/12/2024 11:28 AM [facility] HDL 61 >=40 mg/dL LAB CHEMISTRY METHOD 11/12/2024 11:28 AM [facility] LDL Calculated 124(H) 0 - 100 mg/dL LAB CHEMISTRY METHOD 11/12/2024 11:28 AM [facility] VLDL Cholesterol Juan 27 mg/dL LAB CHEMISTRY METHOD 11/12/2024 11:28 AM [facility] Non HDL Chol. (LDL+VLDL) 151(H) <145 mg/dL LAB CHEMISTRY METHOD 11/12/2024 11:28 AM [facility] Chol/HDL Ratio 3.5 0.0 - 4.4 LAB CHEMISTRY METHOD 11/12/2024 11:28 AM [facility] Blood Venous blood specimen / Unknown Venipuncture / Unknown 11/12/2024 7:35 AM EDT 11/12/2024 7:35 AM EDT us Mila MADRIGAL LAB BLOOD ORDERABLES Final Re sult [facility] [address] [place] [address], [place] [phone] * Comprehensive metabolic panel (11/12/2024 7:35 AM EDT) Sodium 140 133 - 145 mmol/L LAB CHEMISTRY METHOD 11/12/2024 11:28 AM [facility] Potassium 4.1 3.5 - 5.5 mmol/L LAB CHEMISTRY METHOD 11/12/2024 11:28 AM [facility] Chloride 106 96 - 110 mmol/L LAB CHEMISTRY METHOD 11/12/2024 11:28 AM [facility] CO2 27 21 - 32 mmol/L LAB CHEMISTRY METHOD 11/12/2024 11:28 AM [facility] Anion Gap 7 3 - 11 LAB CHEMISTRY METHOD 11/12/2024 11:28 AM [facility] Glucose 100 70 - 100 mg/dL LAB CHEMISTRY METHOD 11/12/2024 11:28 AM [facility] BUN 15 5 - 25 mg/dL LAB CHEMISTRY METHOD 11/12/2024 11:28 AM [facility] Creatinine 0.86 0.50 - 1.10 mg/dL LAB CHEMISTRY METHOD 11/12/2024 11:28 AM [facility] eGFR 73 >=60 mL/min/1. 73m2 LAB CHEMISTRY METHOD 11/12/2024 11:28 AM [facility] Comment:Calculation based on the Chronic Kidney Disease Epidemiology Collaboration (CKD-EPI) equation refit without adjustment for race. BUN/Creatinine Ratio 17.4 LAB CHEMISTRY METHOD 11/12/2024 11:28 AM T [facility] Calcium 9.1 8.5 - 10.5 mg/dL LAB CHEMISTRY METHOD 11/12/2024 11:28 AM [facility] AST (SGOT) 15 10 - 42 unit/L LAB CHEMISTRY METHOD 11/12/2024 11:28 AM [facility] ALT (SGPT) 21 10 - 60 unit/L LAB CHEMISTRY METHOD 11/12/2024 11:28 AM [facility] Alkaline Phosphatase 92 42 - 121 unit/L LAB CHEMISTRY METHOD 11/12/2024 11:28 AM [facility] Total Protein 6.7 6.0 - 8.0 g/dL LAB CHEMISTRY METHOD 11/12/2024 11:28 AM [facility] Albumin 3.8 3.2 - 5.0 g/dL LAB CHEMISTRY METHOD 11/12/2024 11:28 AM [facility] Total Bilirubin 0.7 0.0 - 1.4 mg/dL LAB CHEMISTRY METHOD 11/12/2024 11:28 AM [facility] Blood Venous blood specimen / Unknown Venipuncture / Unknown 11/12/2024 7:35 AM EDT 11/12/2024 7:35 AM EDT us Mila MADRIGAL LAB BLOOD ORDERABLES Final Re sult [facility] [address] [place] [address], [place] [phone] * MG Mammo Digital Screening w Krzysztof bilat (10/01/2024 9:58 AM EDT) Anatomical Region Laterality Modality Breast Bilateral Mammography 10/01/2024 5:19 PM EDT Impressions 10/01/2024 5:19 PM EDT No mammographic evidence of malignancy. BREAST DENSITY: B - There are scattered areas of fibroglandular density. BI-RADS CATEGORY: 1 - NEGATIVE RECOMMENDATION: Screening bilateral mammogram is recommended in 1 year. MAMMO LOCATION: [facility], [address] [place] [address], [id number], . -------- FINAL REPORT -------- Dictated By: Vianey Christianson Dictated Date: 10/01/2024 17:19 ET Assigned Physician: Vianey Christianson Reviewed and Electronically Signed By: Vianey Christianson Signed Date: 10/01/2024 17:19 ET Workstation ID: [id number] Transcribed By: Self Edit Transcribed Date: 10/01/2024 [...] architectural distortion, or suspicious calcifications. Procedure Note Vianey Christianson MD - 10/01/2024 EXAM: Screening Mammogram [...] is recommended in 1 year. MAMMO LOCATION: [facility], [address] [place] [address], [phone], . -------- FINAL REPORT -------- Dictated By: Vianey Christianson Dictated Date: 10/01/2024 17:19 ET Assigned Physician: Vianey Christianson Reviewed and Electronically Signed By: Vianey Christianson Signed Date: 10/01/2024 17:19 ET Workstation ID: [id number] Transcribed By: Self Edit Transcribed Date: 10/01/2024 17:19 ET Damien Alva MD IMG BI PROCEDURE S Final Result * Colonoscopy (09/27/2023) Colonoscopy no interpretation abstracted Anatomical Region Laterality [...] classified as having normal bone density. The [facility] Department of Internal Medicine recommends using National [...] beclassified as having normal bone density. The [facility] Department of Internal Medicine recommendsusing National Osteoporosis [...] or over-estimation of fracture risk by FRAX. us Alan Piper MD [facility] PROCEDURES Final Re sult * Hepatitis C Screening (05/20/2013) Hepatitis C Screening abstracted us Historical Provider HEALTH MAINTENANCE Final Result from Last 3 Months or Most Recently Relevant to Health Maintenance Insurance [employer] Care Teams Pediatric Allergist Relationship Specialty Start Date End Date Damien Alva MD [address] [place] [phone] PCP - General 07/30/23
--- OUTSIDE RECORDS SUMMARY | 2025-04-02 08:52 | XMS_ITS | Clinical Summary ---
Author Organization [employer] Address [address] [facility] [address] [place] [address] Care Team Providers Care Manager Health Name Role Phone Unavailable Primary Care Provider [...] of 2) 2004 COVID-19 Vaccine ( - 2024-2 6 season) 2025 Influenza Vaccine (#1) 2025 RSV Patients and [...] patient's age to complete this topic [facility]
--- OUTSIDE RECORDS SUMMARY | 2025-04-02 08:52 | XMS_ITS | Data Portability ---
Author Organization [facility], [address] Address [address] [place] [address] Care Team Providers Care Channel Marketing Specialist Name Role Phone [facility] Prim stephanie Care Provider Assessment No assessment recorded. Plan of Treatment Reminders Order Date Submit Date Provider Last Modified By Organization Details Last Modified Time Details Appointments None recorded. Lab None recorded. Referral None recorded. Procedures None recorded. Surgeries None recorded. Imaging None recorded. Medication Orders meloxicam 7.5 mg tablet 2022 023 [email or web address] [facility][id number], [address] [place] [address], [address], 19:05:48 lisinopril 5 mg tablet 2022 023 [email or web address] [id number], [address] [place], [address], 19:05:48 Patient TargetsNo targets recorded. Patient Instructions Encounter Date Encounter Id Patient Instructions Last Modified By Organization Details Last Modified Time 08/15/2022 [id number] wrist tendinitis : exercises Not available 08/15/2022 19:05:46 tenosynovitis of the wrist: care instructions [email or web address] Not available 08/15/2022 19:05:45 Based on your [...] if you have any questions or concerns. [email or web address] Not available 08/15/2022 19:05:37 Reason for Referral [...] mm[Hg] [facility] JAEGER [address] [place], [address], [facility] - [facility] 08/15/2022 19:06:40 Date Recorded Body height Body mass index (BMI) Body weight Pain severity - 0-10 verbal numeric rating [Score] - Reported Heart rate Oxygen saturation Oxygen saturation in Arterial blood by Pulse oximetry Respiratory rate Body temperature Systolic And Diastolic Systolic And Diastolic Provider Name and Address Organization Details Last Updated DateTime 3 177.8 cm 27.4 kg/m2 82088.1 4 g 10 77 /min 97 % 97 % 18 /min 97.9 [degF] 179/92 mm[Hg] 210/108 mm[Hg] Cecilia Elizabeth [facility] 3 18:45:33 Social History Question Answer Notes LastModified by [employer] Details LastModified Time Tobacco Smoking Status Former Smoker Cecilia peñaloza PA Clara [facility] 08/15/2022 18:39:48 When Did You Quit Smoking? 16+yearssinc elastcigaret te Information not available 08/15/2022 Have You Recently Traveled Abroad? No Information not available 08/15/2022 Sex: Unknown Functional Status Question Answer Note LastModified by [employer] Details LastModified Time Do you use any [...] Diagnosis SNOMED-CT Code Diagnosis ICD10 Code Diagnosis IMO Codes Diagnosis Note [id number] [address] [place] [address] 08/04/2016 07:58:27 08/04/2016 08:59:02 [id number] [address] [place] [address] 10/19/2018 15:12:15 10/19/2018 16:17:31 [id number] [address] [place] [address] 01/25/2017 09:14:39 01/25/2017 09:31:47 [id number] [address] [place] [address] 04/30/2018 08:44:41 04/30/2018 10:13:39 [id number] [address] [place] [address] 01/17/2018 08:42:39 01/17/2018 09:25:56 [id number] [address] [place] [address] 02/14/2017 08:20:11 02/14/2017 10:06:42 [id number] [address] [place] [address] 03/31/2017 09:12:55 03/31/2017 11:03:19 [id number] [address] [place] [address] 01/25/2018 08:54:09 01/25/2018 10:16:34 [id number] [address] [place] [address] 01/11/2019 13:58:05 01/11/2019 14:34:11 [id number] [address] [place] [address] 12/20/2021 11:18:59 12/20/2021 14:11:28 [id number] [facility] [address] [place] [address] 08/15/2022 17:34:57 08/15/2022 19:09:36 Tendinitis of right wrist region [id number] M67.833 Essential hypertension 98228921 I10 Continue to Monitor blood pressure if [...] Member ID Guarantor Name 10/10/2022 1 JARROD [id number] Evi Mazariegos [id number] 2 Evi Mazariegos Notes Date Note Type Note Provider Name and Address Organization Details Recorded Time 08/16/19 23 text/htm l Wrist / Hand InjuryReported by PatientHPIFor associated symptoms, patient reportspainandswellingbut reportsno redness,no ecchymosis, andno fever. For source of patient information, patient reportspatient arrived at urgent care ambulatory. For location, patient reportsright. For severity, patient reportssevere. For duration, patient reports1 days. For hand dominance, patient reportsright. For aggravating factors, patient reportsrom. For previous injury, patient reportsno prior injury to affected body part.The patient reports was doing a lot of housework yesterday. woke up today with pain in the ulnar side of her wrist. Mild swelling. Hurts to flex and extend wrist. No redness. no bruising. No direct Trauma. No numbness. No previous history of fracture or gout. KAITLIN JAEGER [address] [place], [address], [place] - [facility] 08/15/2022 19:12:11 OBGyn Episode No OBEpisode recorded.
--- OUTSIDE RECORDS SUMMARY | 2025-04-02 08:52 | XMS_ITS | Clinical Summary ---
Author Organization [facility] Address [address] [place] [address] Care Team Providers Care Real Estate Instructor Name Role Phone No, Pcp Primary Care Provider Unavailabl e Allergies No known active allergies Active Problems Problem Noted Date Diagnosed Date Bilateral calcaneal spurs 03/17/2022 Social History Tobacco Use Types Packs/Day Years Used Date Smoking Tobacco: Never Assessed Comments Unknown Sex and Gender Information Value Date Recorded Sex Assigned at Not on file Legal Sex Female 8:20 AM [facility] Gender Identity Not on file Sexual Orientation [...] 2004 Zoster Vaccines (1 of 2) 2004 Bone Density DEXA 11/08/2019 COVID-19 Vaccine ( - 2023-2 5 season) 2025 Influenza Vaccine (#1) 2025 RSV Vaccine (SCDM) (1 - 1-do se 75+ series) 2029 Hepatitis B Vaccines Aged Out No long er eligible based on patient's age to complete this topic Insurance [employer] Care Teams Real Estate Instructor Relationship Specialty Start Date End Date No, Pcp PCP - General 03/17/22
== END 2025-04-02 09:29 | disposition home or self-care (01) ==
PROVIDERS: PCP Family Medicine; Visit Provider Physician Assistant Medical
DX: M54.31 Sciatica, right side (principal)